=== PATIENT | female | born 1950 | race Caucasian/White ===

== ENCOUNTER → 2020-12-17 | Outpatient (CLI) | payer OTHER ==
[~2020-12-17] MED LIST: CYCLOBENZAPRINE10 MG PO; PREDNISONE20 MG PO
== END ==
LOC: RAD 12:20
DX: J45.909 Unspecified asthma, uncomplicated (principal)
CPT/HCPCS: 71046

== ENCOUNTER 2021-02-03 19:52 | Emergency (ER) | payer OTHER ==
[2021-02-03] MEDS ORDERED: CYCLOBENZAPRINE10 MG PO (21:58)
[2021-02-03] MEDS ORDERED: PREDNISONE20 MG PO (21:58)
== END 2021-02-03 22:10 | disposition home or self-care (01) ==
LOC: ER1 19:52
DX: M54.42 Lumbago with sciatica, left side (principal); G89.29 Other chronic pain; F11.20 Opioid dependence, uncomplicated; M51.27 Other intervertebral disc displacement, lumbosacral region; E11.9 Type 2 diabetes mellitus without complications; I10 Essential (primary) hypertension; Z79.899 Other long term (current) drug therapy
CPT/HCPCS: 72131; 99283

== ENCOUNTER → 2021-02-17 | Outpatient (CLI) | payer OTHER | LOC: KOH-I 09:31 | DX: M54.16 Radiculopathy, lumbar region (principal); M51.37 Other intervertebral disc degeneration, lumbosacral region | CPT/HCPCS: 72148 ==

== ENCOUNTER → 2021-08-07 | Day surgery (SDC) | payer OTHER ==
[~2021-08-07] MED LIST changes: +AMARYL2 MG PO; +ARAVA20 MG PO; +AZOR 10-20 MG1 EACH PO; +BYSTOLIC10 MG PO; +CYMBALTA60 MG PO; +HYDROCODON-ACE1 EAC4 PO; +TRULICITY0.75 MG/0. SQ; +TYLENOL EXTRA500 MG PO; +ULTRAM50 MG PO
== END | disposition home or self-care (01) ==
LOC: OR 06:40
DX: K31.819 Angiodysplasia of stomach and duodenum without bleeding (principal); K76.6 Portal hypertension; K31.89 Other diseases of stomach and duodenum; K57.30 Diverticulosis of large intestine without perforation or abscess without bleeding; K64.1 Second degree hemorrhoids; D64.9 Anemia, unspecified; I12.9 Hypertensive chronic kidney disease with stage 1 through stage 4 chronic kidney disease, or unspecified chronic kidney disease; E11.22 Type 2 diabetes mellitus with diabetic chronic kidney disease; N18.30 Chronic kidney disease, stage 3 unspecified; K21.9 Gastro-esophageal reflux disease without esophagitis; E66.9 Obesity, unspecified; G89.29 Other chronic pain; M54.9 Dorsalgia, unspecified; Z86.010 Personal history of colon polyps; Z68.27 Body mass index [BMI] 27.0-27.9, adult; Z79.891 Long term (current) use of opiate analgesic; Z79.4 Long term (current) use of insulin; Z79.899 Other long term (current) drug therapy
CPT/HCPCS: 82962; J2704; J7040

== ENCOUNTER → 2021-09-15 | Outpatient (CLI) | payer OTHER ==
[2021-09-15 09:13] LABS: HEMOGLOBIN 8.6 gm/dl (12.3-15.3); RED BLOOD COUNT 3.35 M/UL (4.00-5.10); WHITE BLOOD COUNT 9.3 K/UL (4.5-11.0)
[2021-09-16 08:14] LABS: ALBUMIN 4.4 g/dL (3.8-4.8); ALKALINE PHOSPHATASE 71 IU/L (44-121); ALT (SGPT) 13 IU/L (0-32); AST (SGOT) 15 IU/L (0-40); BILIRUBIN, DIRECT <0.10 mg/dL (0.00-0.40); BILIRUBIN, TOTAL <0.2 mg/dL (0.0-1.2); PROTEIN, TOTAL 6.7 g/dL (6.0-8.5)
== END ==
LOC: US 09-09 09:30
PROVIDERS: Internal Medicine Gastroenterology
DX: K31.819 Angiodysplasia of stomach and duodenum without bleeding (principal)
CPT/HCPCS: 36415; 76705; 80076; 85027

== ENCOUNTER 2021-10-01 22:22 | Emergency (ER) | payer OTHER ==
[2021-10-01 23:08] LABS: HEMOGLOBIN 9.8 gm/dl (12.3-15.3); RED BLOOD COUNT 3.62 M/UL (4.00-5.10); WHITE BLOOD COUNT 3.9 K/UL (4.5-11.0)
[2021-10-02] MEDS ORDERED: DECADRON6 MG PO (01:43)
[2021-10-02] MEDS ORDERED: [UNRECOGNIZED DRUG - OTHER] IV (01:43)
[2021-10-02] MEDS ORDERED: PROVENTIL HFA6.7 GM INH (01:43)
== END 2021-10-02 01:55 | disposition home or self-care (01) ==
LOC: ER1 22:22
PROVIDERS: Physician Assistant
DX: U07.1 COVID-19 (principal); E11.9 Type 2 diabetes mellitus without complications; I10 Essential (primary) hypertension
CPT/HCPCS: 71045; 80053; 85025; 99285; U0002

== ENCOUNTER → 2021-10-02 | Outpatient (CLI) | payer OTHER ==
[~2021-10-02] VITALS: Ht 165.1 cm; Wt 74.8 kg
[~2021-10-02] MED LIST changes: +DECADRON6 MG PO; +PROVENTIL HFA6.7 GM INH; +[UNRECOGNIZED DRUG - OTHER] IV
== END ==
LOC: EROP 12:34
DX: U07.1 COVID-19 (principal); I12.9 Hypertensive chronic kidney disease with stage 1 through stage 4 chronic kidney disease, or unspecified chronic kidney disease; E11.22 Type 2 diabetes mellitus with diabetic chronic kidney disease; N18.9 Chronic kidney disease, unspecified
CPT/HCPCS: M0245

== ENCOUNTER → 2021-12-29 | Outpatient (CLI) | payer OTHER | LOC: RAD 14:54 | DX: R93.89 Abnormal findings on diagnostic imaging of other specified body structures (principal); R91.8 Other nonspecific abnormal finding of lung field | CPT/HCPCS: 71046 ==